=== PATIENT | male | born 1965 | race Caucasian/White ===

== ENCOUNTER 2017-11-29 12:31 | Emergency (ER) | payer SELFPAY ==
[2017-11-29] MEDS ORDERED: Ketorolac 60 MG/2 ML SDV IM ONE (12:49)
--- NOTE | 2017-11-29 12:56 | EDM.PDOC ---
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 Patient is currently on an antibiotic that he believes is called Keflex for skin infections. He has had migraines that have felt similar two years ago. He denies any fevers or vomiting. States he just barely past his DOT physical vision test. Review of systems: As per history of present illness and below otherwise all systems reviewed and negative. Past medical history: As per history of present illness and as reviewed below otherwise noncontributory. Surgical history: As per history of present illness and as reviewed below otherwise noncontributory. Social history: No reported history of drug or alcohol abuse. Family history: As per history of present illness and as reviewed below otherwise noncontributory. Physical exam: General: Well developed, well nourished in NAD HEENT: Atraumatic, normocephalic, pupils reactive, negative for conjunctival pallor or scleral icterus, mucous membranes moist, throat clear, neck supple, nontender, trachea midline. left maxillary sinus tender to palpation left TM erythematous, right normal, no adenopathy Lungs: Clear to auscultation, breath sounds equal bilaterally, chest nontender. Heart: S1S2, regular, negative for clicks, rubs, or JVD. Abdomen: Soft, nondistended, nontender. Negative for masses or hepatosplenomegaly. Negative for costovertebral tenderness. Pelvis: Stable nontender. Genitourinary: Deferred. Rectal: Deferred. Extremities: Atraumatic, negative for cords or calf pain. Neurovascular unremarkable. Neuro: Awake, alert, oriented. Cranial nerves II through XII unremarkable. Cerebellum unremarkable. Motor and sensory unremarkable throughout. Exam nonfocal. Diagnostics: []Patient is refusing a CT to rule out possible metastases. Therapeutics: []Toradol IM Impression: []Maxillary sinusitis, migraine headache. Plan: []Generic Excedrin Migraine, ice and ibuprofen for pain. Follow-up with your primary care physician Definitive disposition and diagnosis as appropriate pending reevaluation and review of above. headahce Pain Score (Numeric/FACES): 8 - Related Data Allergies Allergy/AdvReac Type Severity Reaction Status Date / Time No Known Allergies Allergy Verified 11/29/17 12:40 Home Meds: Home Meds oxyCODONE HCl/Acetaminophen [Percocet 10-325 mg Tablet] 1 tab PO DAILY 11/29/17 [History] Social & Family History - Tobacco Use Smoking Status *Q: Current Every Day Smoker Years of Tobacco use: 25 - Alcohol Use Days Per Week of Alcohol Use: 0 Number of Drinks Per Day: 0 Total Drinks Per Week: 0 - Recreational Drug Use Recreational Drug Use: No Drug Use in Last 12 Months: No ED ROS GENERAL - Review of Systems Review Of Systems: See Below (see history of present illness) - Physical Exam Exam: See Below (See history of present illness) Course - Vital Signs Last Recorded V/S: Last Vital Signs Temp 98.8 F 11/29/17 12:41 Pulse 100 11/29/17 12:41 Resp 18 11/29/17 12:41 BP 145/100 H 11/29/17 12:41 Pulse Ox 97 11/29/17 12:41 - Orders/Labs/Meds Meds: Medications Discontinued Medications Generic Name Dose Route Start Last Admin Trade Name Riana PRN Reason Stop Dose Admin Ketorolac Tromethamine 60 mg 11/29/17 12:49 11/29/17 13:04 Toradol IM 11/29/17 12:50 60 mg ONETIME ONE Administration - Re-Assessments/Exams Free Text/Narrative Re-Assessment/Exam: Patient is refusing CT of his head after explaining to him the possibility of metastases or bleed or mass that may be causing the headaches. Clinically he has sinusitis but is refusing any other prescriptions for antibiotics stating that he has one in his truck already. Patient states that he will be returning to [place] this Wednesday and will see his primary care physician then. 11/29/17 12:56 Departure - Departure Time of Disposition: 12:57 Disposition: Home, Self-Care 01 Condition: Good Clinical Impression: Sinus headache Sinusitis Qualifiers: Sinusitis location: maxillary Chronicity: acute Recurrence: non-recurrent Qualified Code(s): J01.00 - Acute maxillary sinusitis, unspecified - Discharge Information Referrals: PCP,None [Primary Care Provider] - Forms: ED Department Discharge Additional Instructions: The following information is given to patients seen in the emergency department who are being discharged to home. This information is to outline your options for follow-up care. We provide all patients seen in our emergency department with a follow-up referral. The need for follow-up, as well as the timing and circumstances, are variable depending upon the specifics of your emergency department visit. If you don't have a primary care physician on staff, we will provide you with a referral. We always advise you to contact your personal physician following an emergency department visit to inform them of the circumstance of the visit and for follow-up with them and/or the need for any referrals to a consulting specialist. The emergency department will also refer you to a specialist when appropriate. This referral assures that you have the opportunity for follow-up care with a specialist. All of these measure are taken in an effort to provide you with optimal care, which includes your follow-up. Under all circumstances we always encourage you to contact your private physician who remains a resource for coordinating your care. When calling for follow-up care, please make the office aware that this follow-up is from your recent emergency room visit. If for any reason you are refused follow-up, please contact the [facility] Emergency Department at and asked to speak to the emergency department charge nurse. Use generic Excedrin Migraine, ibuprofen, ice and [id number] decongestants for pain. Follow up with your primary care physician or follow-up with a local physician for further workup. [facility] [address] [place] [id number]
[2017-11-29 13:48] VITALS: BP 134/87
== END 2017-11-29 13:45 | disposition home or self-care (01) ==
LOC: MW.ED 12:31
DX: J01.00 Acute maxillary sinusitis, unspecified (principal); G43.909 Migraine, unspecified, not intractable, without status migrainosus; F17.210 Nicotine dependence, cigarettes, uncomplicated; Z79.891 Long term (current) use of opiate analgesic
CPT/HCPCS: 96372; 99283; J1885

== ENCOUNTER 2019-08-17 21:47 | Emergency (ER) | payer SELFPAY ==
[2019-08-17] MEDS ORDERED: cefTRIAXone 1 GM in Premix Bag 1 BAG IV ONE (21:59)
[2019-08-17] MEDS ORDERED: Sodium Chloride 0.9% 1,000 ML IV ONE (21:59)
[2019-08-17 22:03] VITALS: BP 156/91; PULSE 104
--- NOTE | 2019-08-17 22:05 | EDM.PDOC ---
ED HPI GENERAL MEDICAL PROBLEM - General Chief Complaint: ENT Problem Stated Complaint: TOOTHACHE Time Seen by Provider: 08/17/19 21:57 - History of Present Illness INITIAL COMMENTS - FREE TEXT/NARRATIVE: HISTORY AND PHYSICAL: History of present illness: Patient is 54-year-old white male presents with a concern of dental abscess with large left-sided mandibular swelling. He gets similar episodes in the past related to a left lower molar. He denies fever chills nausea vomiting or other complaints Review of systems: As per history of present illness and below otherwise all systems reviewed and negative. Past medical history: As per history of present illness and as reviewed below otherwise noncontributory. Surgical history: As per history of present illness and as reviewed below otherwise noncontributory. Social history: No reported history of drug or alcohol abuse. Family history: As per history of present illness and as reviewed below otherwise noncontributory. Physical exam: HEENT: Patient has large swelling and tenderness of the left mandibular region, normocephalic, pupils reactive, negative for conjunctival pallor or scleral icterus, mucous membranes moist, throat clear, neck supple, nontender, trachea midline. Lungs: Clear to auscultation, breath sounds equal bilaterally, chest nontender. Heart: S1S2, regular, negative for clicks, rubs, or JVD. Abdomen: Soft, nondistended, nontender. Negative for masses or hepatosplenomegaly. Negative for costovertebral tenderness. Pelvis: Stable nontender. Genitourinary: Deferred. Rectal: Deferred. Extremities: Atraumatic, negative for cords or calf pain. Neurovascular unremarkable. Neuro: Awake, alert, oriented. Cranial nerves II through XII unremarkable. Cerebellum unremarkable. Motor and sensory unremarkable throughout. Exam nonfocal. Diagnostics: Patient deferred any diagnostics I did discuss with patient that I would order CT maxillofacial with IV contrast CBC chemistry blood culture and discussed with him the reason why defers any diagnostics post does agree to oral antibiotics and nothing more he understands risks Therapeutics: Declined Impression: #1 dental abscess Definitive disposition and diagnosis as appropriate pending reevaluation and review of above. - Related Data Allergies Allergy/AdvReac Type Severity Reaction Status Date / Time No Known Allergies Allergy Verified 11/29/17 12:40 Home Meds: Home Meds oxyCODONE HCl/Acetaminophen [Percocet 10-325 mg Tablet] 1 tab PO DAILY 11/29/17 [History] Past Medical History HEENT History: Reports: None Cardiovascular History: Reports: None Respiratory History: Reports: None Gastrointestinal History: Reports: None Genitourinary History: Reports: None Musculoskeletal History: Reports: Amputation Neurological History: Reports: None Psychiatric History: Reports: None Endocrine/Metabolic History: Reports: None Hematologic History: Reports: None Immunologic History: Reports: None Oncologic (Cancer) History: Reports: Basal Cell Carcinoma, Squamous Cell Carcinoma Dermatologic History: Reports: Melanoma, Other (See Below) Other Dermatologic History: basal and squamas - Infectious Disease History Infectious Disease History: Reports: Mumps, Other (See Below) Other Infectious Disease History: childhood - Past Surgical History Head Surgeries/Procedures: Reports: None HEENT Surgical History: Reports: None Cardiovascular Surgical History: Reports: None Respiratory Surgical History: Reports: None GI Surgical History: Reports: None Male Surgical History: Reports: None Endocrine Surgical History: Reports: None Neurological Surgical History: Reports: None Musculoskeletal Surgical History: Reports: Shoulder Surgery Oncologic Surgical History: Reports: None Dermatological Surgical History: Reports: None Social & Family History - Family History Family Medical History: Noncontributory - Caffeine Use Caffeine Use: Reports: Coffee ED ROS GENERAL - Review of Systems Review Of Systems: Comprehensive ROS is negative, except as noted in HPI. ED EXAM, GENERAL - Physical Exam Exam: See Below (See dictation) Course - Orders/Labs/Meds Orders: Active Orders 24 hr Category Date Time Status Max Facial Sinus wo Cont [CT] Stat Exams 08/17/19 21:59 Ordered CBC WITH AUTO DIFF [HEME] Stat Lab 08/17/19 21:58 Ordered COMPREHENSIVE METABOLIC PN,CMP [CHEM] Stat Lab 08/17/19 21:58 Ordered CULTURE BLOOD [BC] Stat Lab 08/17/19 21:59 Ordered CULTURE BLOOD [BC] Stat Lab 08/17/19 21:59 Ordered Clindamycin Phosphate [Cleocin] 900 mg Med 08/17/19 22:00 Active Sodium Chloride 0.9% [Normal Saline] 50 ml IV ONETIME Sodium Chloride 0.9% [Normal Saline] 1,000 ml Med 08/17/19 21:59 Active IV STAT cefTRIAXone [Rocephin in Dextrose,Iso-Osm 1 GM/50 ML] 1 Med 08/17/19 21:59 Active gm Premix Bag 1 bag IV ONETIME Blood Culture x2 Reflex Set [OM.PC] Stat Oth 08/17/19 21:58 Ordered Medication Orders Ceftriaxone Sodium/Dextrose 1 (gm/ Premix) 50 mls @ 100 mls/hr IV ONETIME ONE Stop: 08/17/19 22:28 Clindamycin Phosphate 900 mg/ (Sodium Chloride) 56 mls @ 100 mls/hr IV ONETIME ONE Stop: 08/17/19 22:33 Sodium Chloride (Normal Saline) 1,000 mls @ 999 mls/hr IV STAT ONE Stop: 08/17/19 22:59 Meds: Medications Generic Name Dose Route Start Last Admin Trade Name Freq PRN Reason Stop Dose Admin Ceftriaxone Sodium/Dextrose 1 50 mls @ 100 mls/hr 08/17/19 21:59 gm/ Premix IV 08/17/19 22:28 ONETIME ONE Clindamycin Phosphate 900 mg/ 56 mls @ 100 mls/hr 08/17/19 22:00 Sodium Chloride IV 08/17/19 22:33 ONETIME ONE Sodium Chloride 1,000 mls @ 999 mls/hr 08/17/19 21:59 Normal Saline IV 08/17/19 22:59 STAT ONE Departure - Departure Time of Disposition: 22:04 Disposition: Against Medical Advice 07 Condition: Undetermined Clinical Impression: Dental abscess - Discharge Information Referrals: PCP,None [Primary Care Provider] - Forms: ED Department Discharge Additional Instructions: The following information is given to patients seen in the emergency department who are being discharged to home. This information is to outline your options for follow-up care. We provide all patients seen in our emergency department with a follow-up referral. The need for follow-up, as well as the timing and circumstances, are variable depending upon the specifics of your emergency department visit. If you don't have a primary care physician on staff, we will provide you with a referral. We always advise you to contact your personal physician following an emergency department visit to inform them of the circumstance of the visit and for follow-up with them and/or the need for any referrals to a consulting specialist. The emergency department will also refer you to a specialist when appropriate. This referral assures that you have the opportunity for followup care with a specialist. All of these measure are taken in an effort to provide you with optimal care, which includes your followup. Under all circumstances we always encourage you to contact your private physician who remains a resource for coordinating your care. When calling for followup care, please make the office aware that this follow-up is from your recent emergency room visit. If for any reason you are refused follow-up, please contact the [facility] emergency department at and asked to speak to the emergency department charge nurse. Augmentin as prescribed follow dentist KELVIN return as needed as discussed - My Orders Last 24 Hours: My Active Orders 08/17/19 21:58 CBC WITH AUTO DIFF [HEME] Stat COMPREHENSIVE METABOLIC PN,CMP [CHEM] Stat Blood Culture x2 Reflex Set [OM.PC] Stat 08/17/19 21:59 Max Facial Sinus wo Cont [CT] Stat CULTURE BLOOD [BC] Stat CULTURE BLOOD [BC] Stat Sodium Chloride 0.9% [Normal Saline] 1,000 ml IV STAT cefTRIAXone [Rocephin in Dextrose,Iso-Osm 1 GM/50 ML] 1 gm Premix Bag 1 bag IV ONETIME 08/17/19 22:00 Clindamycin Phosphate [Cleocin] 900 mg Sodium Chloride 0.9% [Normal Saline] 50 ml IV ONETIME - Assessment/Plan Last 24 Hours: My Active Orders 08/17/19 21:58 CBC WITH AUTO DIFF [HEME] Stat COMPREHENSIVE METABOLIC PN,CMP [CHEM] Stat Blood Culture x2 Reflex Set [OM.PC] Stat 08/17/19 21:59 Max Facial Sinus wo Cont [CT] Stat CULTURE BLOOD [BC] Stat CULTURE BLOOD [BC] Stat Sodium Chloride 0.9% [Normal Saline] 1,000 ml IV STAT cefTRIAXone [Rocephin in Dextrose,Iso-Osm 1 GM/50 ML] 1 gm Premix Bag 1 bag IV ONETIME 08/17/19 22:00 Clindamycin Phosphate [Cleocin] 900 mg Sodium Chloride 0.9% [Normal Saline] 50 ml IV ONETIME
== END 2019-08-17 22:18 | disposition left against medical advice (07) ==
LOC: MW.ED 21:47
DX: K04.7 Periapical abscess without sinus (principal)
CPT/HCPCS: 99282; 99283

== ENCOUNTER 2019-08-18 13:17 | Emergency (ER) | payer SELFPAY ==
[2019-08-18 14:09] VITALS: BP 119/72; PULSE 113
[2019-08-18 14:28] LABS: BLOOD UREA NITROGEN,BUN 11 mg/dL (7.0-18.0); CARBON DIOXIDE,CO2 24.3 mmol/L (21.0-32.0); CHLORIDE,CL 104 mmol/L (98-107); GLUCOSE RANDOM 125 mg/dL (74-106); POTASSIUM,K 4.1 mmol/L (3.5-5.1); SODIUM,NA 140 mmol/L (136-148)
--- NOTE | 2019-08-18 14:51 | EDM.PDOC ---
ED HPI GENERAL MEDICAL PROBLEM - General Chief Complaint: General Stated Complaint: TOOTHACHE Time Seen by Provider: 08/18/19 14:49 Source of Information: Reports: Patient - History of Present Illness INITIAL COMMENTS - FREE TEXT/NARRATIVE: HISTORY AND PHYSICAL: History of present illness: []Patient presents with dental pain and swelling on the left lower jawline, he was in the last night and declined CT he presented initially for CT there is no muffled voice drooling or trismus however now a decline CT again and desires to leave he has no fever nausea vomiting chills sweats Review of systems: As per history of present illness and below otherwise all systems reviewed and negative. Past medical history: As per history of present illness and as reviewed below otherwise noncontributory. Surgical history: As per history of present illness and as reviewed below otherwise noncontributory. Social history: No reported history of drug or alcohol abuse. Family history: As per history of present illness and as reviewed below otherwise noncontributory. Physical exam: HEENT: Atraumatic, normocephalic, pupils reactive, negative for conjunctival pallor or scleral icterus, mucous membranes moist, throat clear, neck supple, nontender, trachea midline. Labs as noted on the left lower jawline Lungs: Clear to auscultation, breath sounds equal bilaterally, chest nontender. Heart: S1S2, regular, negative for clicks, rubs, or JVD. Abdomen: Soft, nondistended, nontender. Negative for masses or hepatosplenomegaly. Negative for costovertebral tenderness. Pelvis: Stable nontender. Genitourinary: Deferred. Rectal: Deferred. Extremities: Atraumatic, negative for cords or calf pain. Neurovascular unremarkable. Neuro: Awake, alert, oriented. Cranial nerves II through XII unremarkable. Cerebellum unremarkable. Motor and sensory unremarkable throughout. Exam nonfocal. Diagnostics: [CT was ordered however patient ultimately refused CBC CMP UA ] Therapeutics: continue amoxicillin as prescribed ] Impression: [ ental abscess ] Definitive disposition and diagnosis as appropriate pending reevaluation and review of above. - Related Data Allergies Allergy/AdvReac Type Severity Reaction Status Date / Time No Known Allergies Allergy Verified 08/17/19 22:02 Home Meds: Home Meds . [No Known Home Meds] 08/17/19 [History] Past Medical History HEENT History: Reports: None Other HEENT History: nasal ca Cardiovascular History: Reports: None Respiratory History: Reports: None Gastrointestinal History: Reports: None Genitourinary History: Reports: None Musculoskeletal History: Reports: Amputation Neurological History: Reports: None Psychiatric History: Reports: None Endocrine/Metabolic History: Reports: None Hematologic History: Reports: None Immunologic History: Reports: None Oncologic (Cancer) History: Reports: Basal Cell Carcinoma, Squamous Cell Carcinoma Dermatologic History: Reports: Melanoma, Other (See Below) Other Dermatologic History: basal and squamas - Infectious Disease History Infectious Disease History: Reports: Mumps Other Infectious Disease History: childhood - Past Surgical History Head Surgeries/Procedures: Reports: None HEENT Surgical History: Reports: None Cardiovascular Surgical History: Reports: None Respiratory Surgical History: Reports: None GI Surgical History: Reports: Appendectomy Male Surgical History: Reports: None Endocrine Surgical History: Reports: None Neurological Surgical History: Reports: None Musculoskeletal Surgical History: Reports: Shoulder Surgery Oncologic Surgical History: Reports: None Dermatological Surgical History: Reports: None Social & Family History - Family History Family Medical History: Noncontributory - Tobacco Use Smoking Status *Q: Current Every Day Smoker Years of Tobacco use: 40 Packs/Tins Daily: 1 - Caffeine Use Caffeine Use: Reports: Coffee - Recreational Drug Use Recreational Drug Use: No ED ROS GENERAL - Review of Systems Review Of Systems: See Below ED EXAM, GENERAL - Physical Exam Exam: See Below Course - Vital Signs Last Recorded V/S: Last Vital Signs Temp 99.3 F 08/18/19 14:06 Pulse 113 H 08/18/19 14:06 Resp 20 08/18/19 14:06 BP 119/72 08/18/19 14:06 Pulse Ox 95 08/18/19 14:06 - Orders/Labs/Meds Orders: Active Orders 24 hr Category Date Time Status Soft Tissue Neck w Cont [CT] Stat Exams 08/18/19 13:47 Ordered UA RFX REI AND CULT IF INDIC [URIN] Stat Lab 08/18/19 13:47 Ordered Labs: Laboratory Tests 08/18/19 08/18/19 Range/Units 14:00 14:00 WBC 11.60 H (4.0-11.0) K/uL RBC 4.27 L (4.50-5.90) M/uL Hgb 13.6 (13.0-17.0) g/dL Hct 40.2 (38.0-50.0) % MCV 94.1 (80.0-98.0) fL MCH 31.9 (27.0-32.0) pg MCHC 33.8 (31.0-37.0) g/dL RDW Std Deviation 46.7 (28.0-62.0) fl RDW Coeff of Michelle 14 (11.0-15.0) % Plt Count 301 (150-400) K/uL MPV 10.70 (7.40-12.00) fL Nucleated RBC % 0.0 /100WBC Nucleated RBCs # 0 K/uL Sodium 140 (136-148) mmol/L Potassium 4.1 (3.5-5.1) mmol/L Chloride 104 (98-107) mmol/L Carbon Dioxide 24.3 (21.0-32.0) mmol/L BUN 11 (7.0-18.0) mg/dL Creatinine 1.2 (0.8-1.3) mg/dL Est Cr Clr Drug Dosing TNP Estimated GFR (MDRD) > 60.0 ml/min Glucose 125 H (74-106) mg/dL Calcium 8.6 (8.5-10.1) mg/dL Departure - Departure Time of Disposition: 14:50 Disposition: Home, Self-Care 01 Condition: Good Clinical Impression: Dental abscess - Discharge Information Referrals: Jabari Mcleod MD [Primary Care Provider] - Additional Instructions: The following information is given to patients seen in the emergency department who are being discharged to home. This information is to outline your options for follow-up care. We provide all patients seen in our emergency department with a follow-up referral. The need for follow-up, as well as the timing and circumstances, are variable depending upon the specifics of your emergency department visit. If you don't have a primary care physician on staff, we will provide you with a referral. We always advise you to contact your personal physician following an emergency department visit to inform them of the circumstance of the visit and for follow-up with them and/or the need for any referrals to a consulting specialist. The emergency department will also refer you to a specialist when appropriate. This referral assures that you have the opportunity for follow-up care with a specialist. All of these measure are taken in an effort to provide you with optimal care, which includes your follow-up. Under all circumstances we always encourage you to contact your private physician who remains a resource for coordinating your care. When calling for follow-up care, please make the office aware that this follow-up is from your recent emergency room visit. If for any reason you are refused follow-up, please contact the [facility] emergency department at and asked to speak to the emergency department charge nurse. - My Orders Last 24 Hours: My Active Orders 08/18/19 13:47 Soft Tissue Neck w Cont [CT] Stat UA RFX REI AND CULT IF INDIC [URIN] Stat - Assessment/Plan Last 24 Hours: My Active Orders 08/18/19 13:47 Soft Tissue Neck w Cont [CT] Stat UA RFX REI AND CULT IF INDIC [URIN] Stat
== END 2019-08-18 15:05 | disposition home or self-care (01) ==
LOC: MW.ED 13:17
DX: K04.7 Periapical abscess without sinus (principal); F17.210 Nicotine dependence, cigarettes, uncomplicated
CPT/HCPCS: 36415; 80048; 85027; 99282; 99283

== ENCOUNTER 2021-03-29 19:23 | Emergency (ER) | payer SELFPAY ==
[2021-03-29] MEDS ORDERED: Sodium Chloride 0.9% 10 ML Syringe FLUSH PRN (19:24)
[2021-03-29] MEDS ORDERED: Sodium Chloride 0.9% 2.5 ML Syringe FLUSH PRN (19:24)
--- NOTE | 2021-03-29 19:31 | EDM.PDOC ---
ED HPI GENERAL MEDICAL PROBLEM - General Chief Complaint: Genitourinary Problem Stated Complaint: RT TESTICLE SWOLLEN Time Seen by Provider: 03/29/21 19:24 Source of Information: Reports: Patient History Limitations: Reports: No Limitations - History of Present Illness INITIAL COMMENTS - FREE TEXT/NARRATIVE: HISTORY AND PHYSICAL: History of present illness: Patient is a 56-year-old male who presents to the emergency room with complaints of right testicular pain, redness and swelling x 2 -3 days. He states initially he thought he had a pimple or ingrown hair, has progressively gotten larger and more painful to touch. He states he does shave routinely, may have nicked himself. Patient denies any fever, chills, headache, change in vision, syncope or near syncope. Denies any chest pain, back pain, shortness of breath or cough. Denies any abdominal pain, nausea, vomiting, diarrhea, constipation or dysuria. No concerns for STIs. Has not noted any blood in urine or stool. Patient has been eating and drinking appropriately. Patient reports he does have a history of MRSA and skin cancer. Review of systems: As per history of present illness and below otherwise all systems reviewed and negative. Past medical history: As per history of present illness and as reviewed below otherwise noncontributory. Surgical history: As per history of present illness and as reviewed below otherwise noncontributory. Social history: See social history for further information Family history: As per history of present illness and as reviewed below otherwise noncontributor y. Physical exam: General: Well developed and well nourished 56 year old male. Alert and orientated x 3. Nontoxic in appearance and in no acute distress. Vital signs are stable and have been reviewed by me. Nursing notes were reviewed. HEENT: Atraumatic, normocephalic, pupils equal and reactive bilaterally, negative for conjunctival pallor or scleral icterus, mucous membranes moist, trachea midline. No drooling or trismus noted. No meningeal signs. No hot potato voice noted. Lungs: Clear to auscultation bilaterally. No wheezes, rales, or rhonchi. Chest nontender. Normal work of breathing, no accessory muscles used. Heart: S1S2, regular rate and rhythm without overt murmur, gallops, or rubs. No JVD. No peripheral edema Abdomen: Soft, nondistended, nontender. Normoactive bowel sounds. Negative for masses or costovertebral tenderness. Pelvis: Stable nontender. Genitourinary/Rectal: This was done with consent and a kiln maintenance at the bedside. Patient has a firm area to the right side of the scrotum/testy near the mons pubis which is tender to touch, erythematous and mildly fluctuant. The site is palpable and localized, does have a pin-point hernandez noted. The redness, soft tissue swelling in induration does not extend into the groin or near/around/or in the rectum. Positive cremasteric reflux. Skin: See for details. Remaining skin is intact, warm, dry. Patient does have some healing lesions noted to his left forearm. Hematologic: No petechiae or purpra. Mucosa appropriate color and normal nail bed color and refill. Extremities: Atraumatic, moves all extremities per self without difficulty or deficits, negative for cords or calf pain. Neurovascular unremarkable. Neuro: Awake, alert, oriented. Cranial nerves II through XII unremarkable. Cerebellum unremarkable. Motor and sensory unremarkable throughout. Exam nonfocal. Psychiatric: Mood and affect are appropriate. Normal thought process. Answering questions appropriately. Notes: *This patient was seen and evaluated during the 2019 SARS-CoV-2 novel coronavirus pandemic period. Community viral transmission is ongoing at time of this encounter and the emergency department is operating under pandemic response procedures. Patient is a 56-year-old male who presents to the emergency room with complaints of right testicular pain, redness and swelling. He states he has a history of MRSA, concerned that his testicle may be infected. He denies any concerns for STIs or any other lesions or sores to the genitourinary area. Area started out as an ingrown hair or "pimple" and has just progressively got larger. Has history of MRSA skin infections. My physical exam shows a localized area of redness to the right testicle, near the mons pubis/groin region. The testicle itself is tender to touch as well and is swollen. Localized area may be an abscess, will do further imaging. The redness, swelling and tenderness does not extend into the perineum. Due to the nature of symptoms and location will get labs, imaging, BC and lactate. I did have Dr Champagne involved in this case, he has also seen and evaluated this patient with me. Patient has a leukocytosis, otherwise normal lab work. CT shows on the right, there is a small fluid collection involving the upper scrotum which may reflect a small abscess. Some infiltration of the soft tissues of the right upper scrotum with skin thickening suggesting changes of cellulitis. No soft tissue gas. Small fat containing right inguinal hernia. Ultrasound shows normal testicles bilaterally without mass, testicular abscess or torsion. Small amount of hemiscrotal fluid bilaterally. The small fluid collection involving the right upper scrotum seen on the CT is not well seen on this ultrasound. I discussed puncturing the pustule had to drain the abscess site. Patient is agreeable and consents. We did discuss admission versus close follow-up in outpatient care. He does voice concern financially about being admitted and states he needs to work tomorrow. He declines wanting admission. We will do [facility] care to have patient get his doxycycline tonight. He states he has had a prescription ordered at the pharmacy from Dr. Mcleod for the MRSA infection on his left arm. He states he has not been able to afford to get that yet. Please see procedure note for consent and I&D of the superficial abscess. I have talked with the patient about today's findings, in addition to providing specific details for plan of care. We reviewed strict return precautions. He will return to the emergency room in 2 days for reevaluation of site. Reassessment at the time of disposition demonstrates that the patient is in no acute distress. The patient is stable for discharge, counseling was provided and we discussed in great detail signs and symptoms that would prompt them to return to the Emergency Department. Medication, follow up and supportive care measures were reviewed and discussed. Voices understanding and is agreeable to plan of care. Denies any further questions or concerns at this time. Diagnostics: CBC, CMP, UA, Testicular US, BC x 2, lactate, pelvic CT Therapeutics: IV fluids, Morphine, LET gel and lidocaine with epi Prescription: Doxycycline ([facility] care through [employer]) Impression: Scrotal Abscess with mild cellulitis Plan: 1. You were evaluated today on an emergent basis. Your lab work shows that you do have an infection surrounding the abscess that we drained. Make sure you are practicing good hygiene and and wash gently with mild soap and water twice daily. Monitor the site closely as if it should get any worse or not improving may need to return for IV antibiotics and admission as we discussed. I DO WANT YOU TO BE RE-EVALUATED IN IN THE NEXT 2 DAYS; you can return here or see Dr Mcleod. But someone should re-evaluate the site. We have provided you with the antibiotic, doxycycline 1 tab twice daily over the next 10 days. If your symptoms should worsen, new symptoms develop or any of the signs and symptoms we discussed should arise please return to the emergency room or call 911 (if needed). 2. You can alternate Tylenol and ibuprofen as needed for pain and fever management. 3. We encourage you to follow up with your primary care provider and/or recommended specialist in the next few days for re-evaluation and further care/management. Definitive disposition and diagnosis as appropriate pending reevaluation and review of above. Duration: Day(s): Scrotal pain Pain Score (Numeric/FACES): 9 - Related Data Allergies Allergy/AdvReac Type Severity Reaction Status Date / Time No Known Allergies Allergy Verified 03/29/21 20:33 Home Meds: Home Meds Doxycycline [Vibramycin] 100 mg PO BID 10 Days #20 cap 03/29/21 [Rx] Past Medical History HEENT History: Reports: None Other HEENT History: nasal ca Cardiovascular History: Reports: None Respiratory History: Reports: None Gastrointestinal History: Reports: None Genitourinary History: Reports: None Musculoskeletal History: Reports: Amputation Neurological History: Reports: None Psychiatric History: Reports: None Endocrine/Metabolic History: Reports: None Hematologic History: Reports: None Immunologic History: Reports: None Oncologic (Cancer) History: Reports: Basal Cell Carcinoma, Squamous Cell Carcinoma Dermatologic History: Reports: Melanoma, Other (See Below) Other Dermatologic History: basal and squamas - Infectious Disease History Infectious Disease History: Reports: Mumps Other Infectious Disease History: childhood - Past Surgical History Head Surgeries/Procedures: Reports: None HEENT Surgical History: Reports: None Cardiovascular Surgical History: Reports: None Respiratory Surgical History: Reports: None GI Surgical History: Reports: Appendectomy Male Surgical History: Reports: None Endocrine Surgical History: Reports: None Neurological Surgical History: Reports: None Musculoskeletal Surgical History: Reports: Shoulder Surgery Oncologic Surgical History: Reports: None Dermatological Surgical History: Reports: None Social & Family History - Family History Family Medical History: No Pertinent Family History - Caffeine Use Caffeine Use: Reports: Coffee ED ROS GENERAL - Review of Systems Review Of Systems: Comprehensive ROS is negative, except as noted in HPI. ED EXAM, RENAL/ - Physical Exam Exam: See Below (See dictation) ED PROCEDURES - Additional/Other Procedure(s) Procedure(s) (Free Text): Consent for I&D of a right upper scrotal/mons pubis abscess was reviewed and discussed. Patient consents. Betadine was used to prep the site. Usual and customary procedures were followed. LET gel was used to anesthetize the area. Dr Champagne assisted in I&D. Area was punctured with a 19-gauge needle at the pustule site. Small amount of purulent drainage was expressed from site. Patient tolerated well. Area was cleansed with chlorhexidine and wound wash. Nonstick placed in groin area. Course - Vital Signs Last Recorded V/S: Last Vital Signs Temp 98.5 F 03/29/21 19:45 Pulse 110 H 03/29/21 19:45 Resp 21 H 03/29/21 19:45 BP 130/86 03/29/21 19:45 Pulse Ox 98 03/29/21 19:45 - Orders/Labs/Meds Orders: Active Orders 24 hr Category Date Time Status Scrotum and Contents [US] Stat Exams 03/29/21 19:24 Taken CULTURE BLOOD [BC] Stat Lab 03/29/21 19:50 Received CULTURE BLOOD [BC] Stat Lab 03/29/21 20:03 Received Lactated Ringers [Ringers, Lactated] 1,000 ml Med 03/29/21 20:45 Active IV ASDIRECTED Sodium Chloride 0.9% [Saline Flush] Med 03/29/21 19:24 Active 10 ml FLUSH ASDIRECTED PRN Sodium Chloride 0.9% [Saline Flush] Med 03/29/21 19:24 Active 2.5 ml FLUSH ASDIRECTED PRN Blood Culture x2 Reflex Set [OM.PC] Stat Oth 03/29/21 19:40 Ordered Saline Lock Insert [OM.PC] Stat Oth 03/29/21 19:24 Ordered Medication Orders Lactated Ringer's (Ringers, Lactated) 1,000 mls @ 150 mls/hr IV ASDIRECTED RY Last Admin: 03/29/21 21:07 Dose: 150 mls/hr Documented by: CASEY Sodium Chloride (Sodium Chloride 0.9% 10 Ml Syringe) 10 ml FLUSH ASDIRECTED PRN PRN Reason: Keep Vein Open Last Admin: 03/29/21 19:48 Dose: 10 ml Documented by: CASEY Sodium Chloride (Sodium Chloride 0.9% 2.5 Ml Syringe) 2.5 ml FLUSH ASDIRECTED PRN PRN Reason: Keep Vein Open Last Admin: 03/29/21 19:48 Dose: 2.5 ml Documented by: CASEY Labs: Laboratory Tests 03/29/21 03/29/21 03/29/21 Range/Units 19:50 19:50 19:50 WBC 15.00 H (4.0-11.0) K/uL RBC 4.36 L (4.50-5.90) M/uL Hgb 13.9 (13.0-17.0) g/dL Hct 40.4 (38.0-50.0) % MCV 92.7 (80.0-98.0) fL MCH 31.9 (27.0-32.0) pg MCHC 34.4 (31.0-37.0) g/dL RDW Std Deviation 45.2 (28.0-62.0) fl RDW Coeff of Michelle 13 (11.0-15.0) % Plt Count 293 (150-400) K/uL MPV 11.60 (7.40-12.00) fL Neut % (Auto) 73.8 (48.0-80.0) % Lymph % (Auto) 16.3 (16.0-40.0) % Morgan % (Auto) 6.5 (0.0-15.0) % Eos % (Auto) 2.8 (0.0-7.0) % Baso % (Auto) 0.6 (0.0-1.5) % Neut # (Auto) 11.1 H (1.4-5.7) K/uL Lymph # (Auto) 2.5 H (0.6-2.4) K/uL Morgan # (Auto) 1.0 H (0.0-0.8) K/uL Eos # (Auto) 0.4 (0.0-0.7) K/uL Baso # (Auto) 0.1 (0.0-0.1) K/uL Nucleated RBC % 0.0 /100WBC Nucleated RBCs # 0 K/uL Sodium 142 (136-148) mmol/L Potassium 3.9 (3.5-5.1) mmol/L Chloride 103 (98-107) mmol/L Carbon Dioxide 26.6 (21.0-32.0) mmol/L BUN 15 (7.0-18.0) mg/dL Creatinine 1.2 (0.8-1.3) mg/dL Est Cr Clr Drug Dosing TNP Estimated GFR (MDRD) > 60.0 ml/min Glucose 171 H (74-106) mg/dL Lactic Acid 2.0 (0.4-2.0) mmol/L Calcium 8.8 (8.5-10.1) mg/dL Total Bilirubin 0.4 (0.2-1.0) mg/dL AST 16 (15-37) IU/L ALT 23 (14-63) IU/L Alkaline Phosphatase 113 (46-116) U/L Total Protein 7.3 (6.4-8.2) g/dL Albumin 3.8 (3.4-5.0) g/dL Globulin 3.5 (2.6-4.0) g/dL Albumin/Globulin Ratio 1.1 (0.9-1.6) Urine Color Urine Appearance Urine pH (5.0-8.0) Ur Specific [place] (1.001-1.035) Urine Protein (NEGATIVE) mg/dL Urine Glucose (UA) (NEGATIVE) mg/dL Urine Ketones (NEGATIVE) mg/dL Urine Occult Blood (NEGATIVE) Urine Nitrite (NEGATIVE) Urine Bilirubin (NEGATIVE) Urine Urobilinogen (<2.0) EU/dL Ur Leukocyte Esterase (NEGATIVE) 03/29/21 Range/Units 19:55 WBC (4.0-11.0) K/uL RBC (4.50-5.90) M/uL Hgb (13.0-17.0) g/dL Hct (38.0-50.0) % MCV (80.0-98.0) fL MCH (27.0-32.0) pg MCHC (31.0-37.0) g/dL RDW Std Deviation (28.0-62.0) fl RDW Coeff of Michelle (11.0-15.0) % Plt Count (150-400) K/uL MPV (7.40-12.00) fL Neut % (Auto) (48.0-80.0) % Lymph % (Auto) (16.0-40.0) % Morgan % (Auto) (0.0-15.0) % Eos % (Auto) (0.0-7.0) % Baso % (Auto) (0.0-1.5) % Neut # (Auto) (1.4-5.7) K/uL Lymph # (Auto) (0.6-2.4) K/uL Morgan # (Auto) (0.0-0.8) K/uL Eos # (Auto) (0.0-0.7) K/uL Baso # (Auto) (0.0-0.1) K/uL Nucleated RBC % /100WBC Nucleated RBCs # K/uL Sodium (136-148) mmol/L Potassium (3.5-5.1) mmol/L Chloride (98-107) mmol/L Carbon Dioxide (21.0-32.0) mmol/L BUN (7.0-18.0) mg/dL Creatinine (0.8-1.3) mg/dL Est Cr Clr Drug Dosing Estimated GFR (MDRD) ml/min Glucose (74-106) mg/dL Lactic Acid (0.4-2.0) mmol/L Calcium (8.5-10.1) mg/dL Total Bilirubin (0.2-1.0) mg/dL AST (15-37) IU/L ALT (14-63) IU/L Alkaline Phosphatase (46-116) U/L Total Protein (6.4-8.2) g/dL Albumin (3.4-5.0) g/dL Globulin (2.6-4.0) g/dL Albumin/Globulin Ratio (0.9-1.6) Urine Color YELLOW Urine Appearance CLEAR Urine pH 7.0 (5.0-8.0) Ur Specific [place] 1.025 (1.001-1.035) Urine Protein NEGATIVE (NEGATIVE) mg/dL Urine Glucose (UA) NEGATIVE (NEGATIVE) mg/dL Urine Ketones NEGATIVE (NEGATIVE) mg/dL Urine Occult Blood NEGATIVE (NEGATIVE) Urine Nitrite NEGATIVE (NEGATIVE) Urine Bilirubin NEGATIVE (NEGATIVE) Urine Urobilinogen 0.2 (<2.0) EU/dL Ur Leukocyte Esterase NEGATIVE (NEGATIVE) Meds: Medications Generic Name Dose Route Start Last Admin Trade Name Riana PRN Reason Stop Dose Admin Lactated Ringer's 1,000 mls @ 150 mls/hr 03/29/21 20:45 03/29/21 21:07 Ringers, Lactated IV 150 mls/hr ASDIRECTED RY Administration Sodium Chloride 10 ml 03/29/21 19:24 03/29/21 19:48 Sodium Chloride 0.9% 10 Ml Syringe FLUSH 10 ml ASDIRECTED PRN Administration Keep Vein Open Sodium Chloride 2.5 ml 03/29/21 19:24 03/29/21 19:48 Sodium Chloride 0.9% 2.5 Ml Syringe FLUSH 2.5 ml ASDIRECTED PRN Administration Keep Vein Open Discontinued Medications Generic Name Dose Route Start Last Admin Trade Name Riana PRN Reason Stop Dose Admin Doxycycline Hyclate 100 mg 03/29/21 21:22 03/29/21 21:33 Doxycycline 100 Mg Cap PO 03/29/21 21:23 100 mg ONETIME ONE Administration Iopamidol 100 ml 03/29/21 20:27 03/29/21 20:50 Iopamidol 755 Mg/Ml 100 Ml Bottle IVPUSH 03/29/21 20:28 100 ml ONETIME ONE Administration Lidocaine/Epinephrine 10 ml 03/29/21 21:42 Lidocaine 1% With Epinephrine 1:100,000 10 Ml Mdv INJECT 03/29/21 21:43 ONETIME ONE Lidocaine/Tetracaine Confirm 03/29/21 21:43 Lidocaine/Epinephrine/Tetracaine Soln 1 Ml Administered 03/29/21 21:44 Dose 1 ml .ROUTE .STK-MED ONE Morphine Sulfate 4 mg 03/29/21 21:21 03/29/21 21:34 Morphine 4 Mg/Ml Syringe IVPUSH 03/29/21 21:22 4 mg ONETIME ONE Administration Departure - Departure Time of Disposition: 21:36 Disposition: Home, Self-Care 01 Clinical Impression: Scrotum, abscess Cellulitis Qualifiers: Site of cellulitis: other site Qualified Code(s): L03.818 - Cellulitis of other sites - Discharge Information Prescriptions: Doxycycline [Vibramycin] 100 mg PO BID 10 Days #20 cap Instructions: Cellulitis, Adult, [id number] Referrals: Jabari Mcleod MD [Primary Care Provider] - Forms: ED Department Discharge Additional Instructions: The following information is given to patients seen in the emergency department who are being discharged to home. This information is to outline your options for follow-up care. We provide all patients seen in our emergency department with a follow-up referral. The need for follow-up, as well as the timing and circumstances, are variable depending upon the specifics of your emergency department visit. If you don't have a primary care physician on staff, we will provide you with a referral. We always advise you to contact your personal physician following an emergency department visit to inform them of the circumstance of the visit and for follow-up with them and/or the need for any referrals to a consulting specialist. The emergency department will also refer you to a specialist when appropriate. This referral assures that you have the opportunity for follow-up care with a specialist. All of these measure are taken in an effort to provide you with optimal care, which includes your follow-up. Under all circumstances we always encourage you to contact your private physician who remains a resource for coordinating your care. When calling for follow-up care, please make the office aware that this follow-up is from your recent emergency room visit. If for any reason you are refused follow-up, please contact the [facility] Emergency Department at and asked to speak to the emergency department charge nurse. [facility] Primary Care [address] [place] [address] [place] [address] Thank you for choosing the [facility] emergency department in [place] for your medical needs today. It was a pleasure caring for you. Today you were seen in the emergency department for skin infection and abscess. 1. You were evaluated today on an emergent basis. Your lab work shows that you do have an infection surrounding the abscess that we drained. Make sure you are practicing good hygiene and and wash gently with mild soap and water twice daily. Monitor the site closely as if it should get any worse or not improving may need to return for IV antibiotics and admission as we discussed. I DO WANT YOU TO BE RE-EVALUATED IN IN THE NEXT 2 DAYS; you can return here or see Dr Mcleod. But someone should re-evaluate the site. We have provided you with the antibiotic, doxycycline 1 tab twice daily over the next 10 days. If your symptoms should worsen, new symptoms develop or any of the signs and symptoms we discussed should arise please return to the emergency room or call 911 (if needed). 2. You can alternate Tylenol and ibuprofen as needed for pain and fever management. 3. We encourage you to follow up with your primary care provider and/or recommended specialist in the next few days for re-evaluation and further care/management. . Sepsis Event Note (ED) - Focused Exam Vital Signs: Vital Signs Temp Pulse Resp BP Pulse Ox 03/29/21 19:45 98.5 F 110 H 21 H 130/86 98 - My Orders Last 24 Hours: My Active Orders 03/29/21 19:24 Scrotum and Contents [US] Stat Sodium Chloride 0.9% [Saline Flush] 10 ml FLUSH ASDIRECTED PRN Sodium Chloride 0.9% [Saline Flush] 2.5 ml FLUSH ASDIRECTED PRN Saline Lock Insert [OM.PC] Stat 03/29/21 19:40 Blood Culture x2 Reflex Set [OM.PC] Stat 03/29/21 19:50 CULTURE BLOOD [BC] Stat 03/29/21 20:03 CULTURE BLOOD [BC] Stat 03/29/21 20:45 Lactated Ringers [Ringers, Lactated] 1,000 ml IV ASDIRECTED - Assessment/Plan Last 24 Hours: My Active Orders 03/29/21 19:24 Scrotum and Contents [US] Stat Sodium Chloride 0.9% [Saline Flush] 10 ml FLUSH ASDIRECTED PRN Sodium Chloride 0.9% [Saline Flush] 2.5 ml FLUSH ASDIRECTED PRN Saline Lock Insert [OM.PC] Stat 03/29/21 19:40 Blood Culture x2 Reflex Set [OM.PC] Stat 03/29/21 19:50 CULTURE BLOOD [BC] Stat 03/29/21 20:03 CULTURE BLOOD [BC] Stat 03/29/21 20:45 Lactated Ringers [Ringers, Lactated] 1,000 ml IV ASDIRECTED
[2021-03-29] MEDS ORDERED: Iopamidol 755 Mg/ML 100 ML Bottle IVPUSH ONE (20:27)
[2021-03-29 20:29] LABS: BLOOD UREA NITROGEN,BUN 15 mg/dL (7.0-18.0); CARBON DIOXIDE,CO2 26.6 mmol/L (21.0-32.0); CHLORIDE,CL 103 mmol/L (98-107); GLUCOSE RANDOM 171 mg/dL (74-106); POTASSIUM,K 3.9 mmol/L (3.5-5.1); SODIUM,NA 142 mmol/L (136-148)
[2021-03-29] MEDS ORDERED: Lactated Ringers 1,000 ML IV SCH (20:45)
--- NOTE | 2021-03-29 21:20 | CT ---
HISTORY: Scrotal swelling. TECHNIQUE: Intravenous contrast enhanced CT of the pelvis. 100 mL of Isovue-370 intravenous contrast administered. COMPARISON: Ultrasound 03/29/2021. FINDINGS: There is a small approximately 1.8 x 1.2 x 1.3 cm fluid collection associated with the upper right scrotum on image #89 of series 2 and 2. This may reflect a small soft tissue abscess. There is some infiltration of the soft tissues of upper right scrotum with skin thickening apparent. No soft tissue gas. Small amount of fluid within the right and left scrotal sacs. No deeper intrapelvic collection. A small fat containing right inguinal hernia is present. Increased number of right greater left inguinal region lymph nodes may be reactive. There are atherosclerotic changes of the aortoiliac circulation. No acute pelvic fracture. 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 IMPRESSION: 1. On the right, there is a small fluid collection involving the upper scrotum which may reflect a small abscess. Some infiltration of the soft tissues of the right upper scrotum with skin thickening suggesting changes of cellulitis. 2. No soft tissue gas. 3. Small fat containing right inguinal hernia. Please note that all CT scans at this facility use dose modulation, iterative reconstruction, and/or weight-based dosing when appropriate to reduce radiation dose to as low as reasonably achievable. Dictated by Fredy Boucher MD @ 03/29/2021 9:19:[address] Fredy Boucher @ Mar 29 2021 9:19PM
[2021-03-29] MEDS ORDERED: Morphine 4 MG/ML Syringe IVPUSH ONE (21:21)
[2021-03-29] MEDS ORDERED: Doxycycline 100 MG Cap PO ONE (21:22)
--- NOTE | 2021-03-29 21:26 | US ---
HISTORY: Right testicular pain and swelling. TECHNIQUE: Scrotal ultrasound. COMPARISON: CT of the pelvis 03/29/2021. FINDINGS: Right side: Testicle measures 3.7 x 2.4 x 3 cm in size. No right testicular mass or torsion. Small amount of right hemiscrotal fluid. Right epididymis is unremarkable. - Left-side: Testicle measures 4.2 x 2.7 x 3 cm in size. No left testicular mass or torsion. Small amount of left hemiscrotal fluid. Left epididymis unremarkable. IMPRESSION: 1. Normal testicles bilaterally without mass, testicular abscess or torsion. 2. Small amount of hemiscrotal fluid bilaterally. 3. The small fluid collection involving the right upper scrotum seen on the CT is not well seen on this ultrasound. Dictated by Fredy Boucher MD @ 03/29/2021 9:23:[address] Fredy Boucher @ Mar 29 2021 9:23PM
[2021-03-29] MEDS ORDERED: Lidocaine 1% with EPINEPHrine 1:100,000 10 ML MDV INJECT ONE (21:42)
[2021-03-29] MEDS ORDERED: Lidocaine/EPINEPHrine/Tetracaine Soln 1 ML ONE (21:43)
[2021-03-29] MEDS ORDERED: Lidocaine 1% with EPINEPHrine 1:100,000 20 ML MDV ONE (21:45)
[2021-03-29] MEDS ORDERED: Lidocaine 1% with EPINEPHrine 1:100,000 20 ML MDV INJECT ONE (21:47)
[2021-03-29] MEDS ORDERED: Lidocaine/EPINEPHrine/Tetracaine Soln 1 ML TOP ONE (21:48)
[2021-03-29 22:48] VITALS: BP 140/89; PULSE 93
--- NOTE | 2021-04-01 10:45 | US ---
EXAM DATE: 03/29/21 PATIENT'S AGE: 56 Patient: MALCOLM MONAHAN Facility: [facility] Site . Site : 1965 Study: US-Testicle -03/29/2021 8:36:56 PM Ordering Physician: ED Provider Temporary Final Report: HISTORY: Right testicular pain and swelling. TECHNIQUE: Scrotal ultrasound. COMPARISON: CT of the pelvis 03/29/2021. FINDINGS: Right side: Testicle measures 3.7 x 2.4 x 3 cm in size. No right testicular mass or torsion. Small amount of right hemiscrotal fluid. Right epididymis is unremarkable. - Left-side: Testicle measures 4.2 x 2.7 x 3 cm in size. No left testicular mass or torsion. Small amount of left hemiscrotal fluid. Left epididymis unremarkable. IMPRESSION: 1. Normal testicles bilaterally without mass, testicular abscess or torsion. 2. Small amount of hemiscrotal fluid bilaterally. 3. The small fluid collection involving the right upper scrotum seen on the CT is not well seen on this ultrasound. Dictated by Fredy Boucher MD @ 03/29/2021 9:23:50 PM Signed by: Fredy Boucher MD @03/29/2021 9:23:50 PM (Electronic Signature) Report Signed by Proxy. [facility] HOSPITALJonathan
== END 2021-03-29 22:25 | disposition home or self-care (01) ==
LOC: MW.ED 19:23
DX: N49.2 Inflammatory disorders of scrotum (principal)
CPT/HCPCS: 36415; 55100; 72193; 76870; 80053; 81003; 83605; 85025; 87040; 93976; 96374; 99284; A9270; J2270; J7120; Q9967

== ENCOUNTER 2021-07-03 08:30 | Emergency (ER) | payer SELFPAY ==
--- NOTE | 2021-07-03 13:12 | EDM.PDOC ---
ED HPI GENERAL MEDICAL PROBLEM - General Chief Complaint: Skin Complaint Stated Complaint: BUMPED BY EYE Time Seen by Provider: 07/03/21 09:21 - History of Present Illness INITIAL COMMENTS - FREE TEXT/NARRATIVE: CHIEF COMPLAINT(S): Eye infection HISTORY OF PRESENT ILLNESS: This is a 56-year-old man without any significant past medical history presents to the emergency department with a chief complaint of eye infection. The patient states that a couple of days ago there was a pimple on his right cheek for which he popped and picked it and since that time the area around the area has turned red and warm. He states that it is not draining anything. He denies any blurry vision, double vision, loss of vision. He denies any pain when he moves his eyes. He denies any other symptoms other than swelling and redness. He states that the pain is mild rated 1-2 out of 10 which he describes as achy. There is no radiation of this pain. He denies any earache or dental pain. He denies any runny nose. He states that he has not yet tried anything for the pain. There are no relieving factors. Exacerbating factors include touching it. REVIEW OF SYSTEMS: Constitutional: Denies fever, chills. Eyes: Denies eye pain Ears, Nose, Mouth, & Throat: Denies earache Cardiovascular: Denies chest pain Respiratory: Denies shortness of breath Gastrointestinal: Denies Nausea, vomiting, diarrhea, hematochezia. Genitourinary: Denies hematuria Skin: Positive for rash around the right eye MSK: Denies joint pain Neurological: Denies blurred vision Psychiatric: Denies depression PAST MEDICAL HISTORY: As per history of present illness and as reviewed below otherwise noncontributory. SURGICAL HISTORY: As per history of present illness and as reviewed below otherwise noncontributory. SOCIAL HISTORY: As per history of present illness and as reviewed below otherwise noncontributory. FAMILY HISTORY: As per history of present illness and as reviewed below otherwise noncontributory. EXAMINATION OF ORGAN SYSTEMS/BODY AREAS: Constitutional: Blood pressure is 127/78, heart rate 58, respiratory rate 18 with an oxygen saturation of 99% on room air. Temperature 36.4 General: Well-appearing man who is in no acute distress Psychiatric: Appropriate mood and affect. Eyes: No scleral icterus or conjunctival erythema pupils are equal round reactive to light. Extraocular movements intact. No vertical or horizontal nystagmus. No pain with extraocular movements. No proptosis. No signs of entrapment. ENMT: Moist mucous membranes. No pharyngeal erythema bilateral tympanic membranes without any hemotympanum, bulging, or erythema. No postauricular tenderness or swelling. No dental caries or evidence of dental abscess. Cardiovascular: Regular, rate, and rhythm. No gallops, murmurs, or rubs. Bilateral upper extremity pulses symmetric and intact. No peripheral edema. No JVD. Respiratory: Lungs clear to auscultation bilaterally. No wheezes, rales, or rhonchi. Skin: There is some periorbital erythema just inferior to the right eyelid located on the right cheek and laterally. There is no crepitus. Neurological: Alert, GCS 15 MEDICAL DECISION MAKING AND COURSE IN THE ED WITH INTERPRETATION/REVIEW OF DIAGNOSTIC STUDIES: This is a 56-year-old man without any significant past medical history presents to the emergency department with preseptal cellulitis. Patient has no red flag symptoms and overall appears well. At this time we will provide the patient with antibiotics. He is to follow-up with his primary care physician for reevaluation. He was given strict return precautions and was amenable to discharge at this time. The patient states that he cannot afford antibiotics therefore I did contact [facility] and a prescription was provided using compassionate care. The prescription was provided to the patient. DISPOSITION: The patient was discharged home in stable condition. The patient will follow up with primary care physician in 3 to 5 days. CONDITION: Fair PROCEDURES: None FINAL IMPRESSION(S)/DIAGNOSES: 1. Acute preseptal cellulitis Gera Anderson M.D. right cheek Pain Score (Numeric/FACES): 5 - Related Data Allergies Allergy/AdvReac Type Severity Reaction Status Date / Time No Known Allergies Allergy Verified 07/03/21 10:32 Home Meds: Home Meds Aspirin [Nia Chewable Aspirin] 81 mg PO DAILY 07/03/21 [History] oxyCODONE HCl/Acetaminophen [Oxycodon-Acetaminophen 7.5-300] 1 tab PO Q4H 07/03/21 [History] Past Medical History HEENT History: Reports: None Other HEENT History: nasal ca Cardiovascular History: Reports: None Respiratory History: Reports: None Gastrointestinal History: Reports: None Genitourinary History: Reports: None Musculoskeletal History: Reports: Amputation Neurological History: Reports: None Psychiatric History: Reports: None Endocrine/Metabolic History: Reports: None Hematologic History: Reports: None Immunologic History: Reports: None Oncologic (Cancer) History: Reports: Basal Cell Carcinoma, Squamous Cell Carcinoma Dermatologic History: Reports: Melanoma, Other (See Below) Other Dermatologic History: basal and squamas - Infectious Disease History Infectious Disease History: Reports: MRSA, Mumps Other Infectious Disease History: childhood - Past Surgical History Head Surgeries/Procedures: Reports: None HEENT Surgical History: Reports: None Other HEENT Surgeries/Procedures: nasal Cardiovascular Surgical History: Reports: None Respiratory Surgical History: Reports: None GI Surgical History: Reports: Appendectomy Male Surgical History: Reports: None Endocrine Surgical History: Reports: None Neurological Surgical History: Reports: None Musculoskeletal Surgical History: Reports: Shoulder Surgery Other Musculoskeletal Surgeries/Procedures:: L index finger amputation Oncologic Surgical History: Reports: None Dermatological Surgical History: Reports: None Social & Family History - Family History Family Medical History: No Pertinent Family History - Tobacco Use Tobacco Use Status *Q: Current Every Day Tobacco User Years of Tobacco use: 30 Packs/Tins Daily: 1 - Caffeine Use Caffeine Use: Reports: Coffee - Recreational Drug Use Recreational Drug Use: No ED ROS GENERAL - Review of Systems Review Of Systems: See Below ED EXAM, SKIN/RASH Exam: See Below Course - Vital Signs Last Recorded V/S: Last Vital Signs Temp 36.6 C 07/03/21 13:27 Pulse 74 07/03/21 13:27 Resp 16 07/03/21 13:27 BP 116/82 07/03/21 13:27 Pulse Ox 97 07/03/21 13:27 Departure - Departure Time of Disposition: 13:11 Disposition: Home, Self-Care 01 Condition: Fair Clinical Impression: Periorbital cellulitis of right eye - Discharge Information *PRESCRIPTION DRUG MONITORING PROGRAM REVIEWED*: No *COPY OF PRESCRIPTION DRUG MONITORING REPORT IN PATIENT MALIHA: No Instructions: Preseptal Cellulitis, Adult Referrals: Jabari Mcleod MD [Primary Care Provider] - Forms: ED Department Discharge Additional Instructions: You were evaluated today on an emergent basis. At this time I do believe you have a skin infection that does not involve your orbits. I recommend that you use Bactrim as prescribed twice a day for the next 7 days and that you follow-up with your primary care physician in 3 to 5 days. My understanding that you do have a follow-up appointment tomorrow so I like you to keep that appointment. If you have any worsening symptoms such as pain when you move your eyes, worsening redness or swelling I would like you to return to the emergency department. [facility] - Primary Care [address] [place] [address] [facility] [address] [place] [id number] The patient is informed of any results of their evaluation and diagnostic workup and all questions are answered. They are given discharge instructions and return precautions. The patient is stable for discharge. The patient states they understand and agree with the plan and that they will return if their symptoms get worse or if they have any new concerns. The following information is given to patients seen in the emergency department who are being discharged to home. This information is to outline your options for follow-up care. We provide all patients seen in our emergency department with a follow-up referral. The need for follow-up, as well as the timing and circumstances, are variable depending upon the specifics of your emergency department visit. If you don't have a primary care physician on staff, we will provide you with a referral. We always advise you to contact your personal physician following an emergency department visit to inform them of the circumstance of the visit and f or follow-up with them and/or the need for any referrals to a consulting specialist. The emergency department will also refer you to a specialist when appropriate. This referral assures that you have the opportunity for follow-up care with a specialist. All of these measure are taken in an effort to provide you with optimal care, which includes your follow-up. Under all circumstances we always encourage you to contact your private physician who remains a resource for coordinating your care. When calling for follow-up care, please make the office aware that this follow-up is from your recent emergency room visit. If for any reason you are refused follow-up, please contact the [facility] Emergency Department at and asked to speak to the emergency department charge nurse. Sepsis Event Note (ED) - Evaluation Sepsis Screening Result: No Definite Risk
[2021-07-03 13:28] VITALS: BP 116/82; PULSE 74
== END 2021-07-03 13:13 | disposition home or self-care (01) ==
LOC: MW.ED 08:30
DX: L03.213 Periorbital cellulitis (principal); Z79.82 Long term (current) use of aspirin; Z72.0 Tobacco use
CPT/HCPCS: 99283

== ENCOUNTER 2021-11-24 15:26 | Emergency (ER) | payer SELFPAY ==
[2021-11-24] MEDS ORDERED: Ibuprofen 600 MG Tab PO ONE (15:39)
[2021-11-24] MEDS ORDERED: Sulfamethoxazole/Trimethoprim 800-160 MG Tab PO ONE (15:39)
[2021-11-24 16:12] VITALS: BP 124/76; PULSE 64
== END 2021-11-24 16:21 | disposition home or self-care (01) ==
LOC: MW.ED 15:26
DX: L03.113 Cellulitis of right upper limb (principal); Z79.82 Long term (current) use of aspirin
CPT/HCPCS: 99283; A9270